=== PATIENT | male | born 1955 | race African-American/Black ===

== ENCOUNTER → 2016-08-17 | Outpatient (CLI) | payer OTHER ==
[2014-09-25 15:00] VITALS: BP 107/80
[~2016-08-17] MED LIST: ASPI-252 PO; LISI5TAB PO; SIMV40TA PO
--- NOTE | 2016-08-17 14:24 | RAD ---
EXAM: Right knee, 2 views HISTORY: Right knee pain. COMPARISON: None. FINDINGS: No fractures are identified. Joint spaces are maintained. Alignment is normal. There is no joint effusion. Atherosclerotic calcifications are noted. IMPRESSION: 1. Unremarkable examination of the right knee.
== END | disposition home or self-care (01) ==
LOC: RAD 09:59
PROVIDERS: ATTEND Surgery
DX: M25.561 Pain in right knee (principal)
CPT/HCPCS: 73560